=== PATIENT | female | born 1980 | race Caucasian/White ===

== ENCOUNTER 2016-06-17 14:18 | Emergency (ER) | payer OTHER ==
[~2016-06-17] VITALS: Ht 157.5 cm; Wt 63.5 kg
[2016-06-17 14:48] VITALS: BP 120/52
--- NOTE | 2016-06-17 16:01 | NUR ---
PATIENT PRESENTS TO ED WITH RIGHT SIDED EARACHE STARTING LAST NIGHT; DENIES N/V/D; SKIN IS PINK/WARM/DRY; AAOX4 WITH EVEN AND STEADY GAIT; LUNGS CLEAR BL; HR EVEN AND REGULAR; PT DENIES ANY FEVER, CP, SOB, OR COUGH AT THIS TIME; PATIENT STATES PAIN OF 7/10 AT THIS TIME; VSS; PATIENT POSITIONED FOR COMFORT; HOB ELEVATED; BEDRAILS UP X2; BED DOWN. ER MD MADE AWARE OF PT STATUS.
[2016-06-17 16:32] VITALS: BP 118/61
--- NOTE | 2016-06-17 16:32 | NUR ---
Patient discharged with v/s stable. Written and verbal after care instructions given and explained. Patient alert, oriented and verbalized understanding of instructions. Ambulatory with steady gait. All questions addressed prior to discharge. ID band removed. Patient advised to follow up with PMD. Rx of PREDNISONE, MOTRINE given. Patient educated on indication of medication including possible reaction and side effects. Opportunity to ask questions provided and answered.
== END 2016-06-17 16:40 | disposition home or self-care (01) ==
LOC: MED 14:18
DX: H92.01 Otalgia, right ear (principal); R05 Cough; J34.89 Other specified disorders of nose and nasal sinuses; Z88.0 Allergy status to penicillin

== ENCOUNTER 2018-08-10 13:06 | Emergency (ER) | payer OTHER ==
[~2018-08-10] VITALS: Ht 157.5 cm; Wt 61.7 kg
[2018-08-10 13:17] VITALS: BP 113/74
--- NOTE | 2018-08-10 13:26 | NUR ---
PATIENT AMBULATED TO BED 3 AT THIS TIME.
--- NOTE | 2018-08-10 13:30 | NUR ---
PT IS A 37 Y/O FEMALE WHO PRESENTS TO THE ED C/O FACIAL PAIN. PER PT IT HAS BEEN GOING ON X3 DAYS. PT REPORTS 7/10 BURNING BILATERAL FACIAL PAIN. PT HAS BEEN TAKING MOTRIN WITH NO RELIEF. NOTED MILD REDNESS NO SWELLING. PT DENIES CP, SOB, N/V/D. PT AWAKE AND ALERT, RR EVEN/UNLABORED. PT REPOSITIONED FOR COMFORT, BED IN LOWEST POSITION. ER MD DR. MATTHWE NOTIFIED. WILL CONTINUE TO MONITOR. 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
[2018-08-10] MEDS ORDERED: KETOROLAC 60 MG/2 ML VIAL IM ONE (14:10)
[2018-08-10 15:04] VITALS: BP 106/74
--- NOTE | 2018-08-10 15:05 | NUR ---
Patient discharged with v/s stable. Written and verbal after care instructions given and explained. Patient alert, oriented and verbalized understanding of instructions. Ambulatory with steady gait. All questions addressed prior to discharge. ID band removed. Patient advised to follow up with PMD. Rx of Motrin and [place] given. Patient educated on indication of medication including possible reaction and side effects. Opportunity to ask questions provided and answered.
== END 2018-08-10 15:05 | disposition home or self-care (01) ==
LOC: MED 13:06
DX: R51 Headache (principal); Z88.0 Allergy status to penicillin; Z85.9 Personal history of malignant neoplasm, unspecified
CPT/HCPCS: 81002; 81025; 96372; 99283; J1885